=== PATIENT | female | born 1970 | race Caucasian/White ===

== ENCOUNTER → 2018-06-23 08:23 | Outpatient (CLI) | payer OTHER, SELFPAY ==
[2018-06-23 09:59] LABS: Absolute Neutrophil Count 4.9 X10^3/uL (2.0-7.7); Basophil# 0.04 X10^3/uL; Basophil% 0.6 % (0-1); Eosinophils% 2.8 % (0-5); Hemoglobin 11.6 g/dl (12.0-15.0); Lymphocyte % 20.9 % (19-41); Mean Corp Hgb Conc 31.4 g/gl (32-36); Mean Corpuscular Hgb 26.2 pg (27.0-32.0); Mean Corpuscular Volume 83.7 fL (81-99); Mean Platelet Vol. 10.7 fl (6.2-12.0); Monocyte# 0.51 X10^3/uL; Monocyte% 7.1 % (0-10); Neutrophil # 4.93 X10^3/uL (2.7-7.7); Neutrophil % 68.5 % (47-70); Platelet Count 331 K/mm3 (150-450); RBC Distribution Width CV 14.3 % (11.6-14.6); RBC Distribution Width SD 43.9 fl (35.1-43.9); Red Blood Count 4.42 M/mm3 (4.2-5.4); White Blood Count 7.2 K/mm3 (4.4-11.0)
[2018-06-23 10:00] LABS: POSITIVE COUNT NO; POSITIVE DIFFERENTIAL NO; POSITIVE MORPHOLOGY NO
[2018-06-23 10:21] LABS: Anion Gap 8 (5-15); BUN 16 mg/dL (7-18); BUN/Creat Ratio 17.6 RATIO (10-20); Calcium,Total 8.6 mg/dL (8.5-10.1); Chloride 106 mmol/L (98-107); Creatinine, Serum 0.91 mg/dL (0.55-1.02); EST Glomerular Filtration Rate 70 mL/min (>60); Est Glom Filt Rate - Afr Amer 85 mL/min (>60); Glucose 82 mg/dL (74-106); Sodium Level 141 mmol/L (136-145)
[2018-06-23 16:29] LABS: Xtra Tube EP Lab EXTRA TUBE
== END ==
PROVIDERS: Family Provider Family Medicine; PCP Family Medicine; Referring Provider Family Medicine; Visit Provider Family Medicine
DX: I10 Essential (primary) hypertension (principal); D64.9 Anemia, unspecified
CPT/HCPCS: 36415; 80048; 85025

== ENCOUNTER 2018-07-22 06:51 | Emergency (ER) | payer OTHER, SELFPAY ==
[2018-07-22 06:52] VITALS: BP 174/90; PULSE 71; RESP 18; TEMP 36.6; O2SAT 100; BMI 27.4
[2018-07-22 07:16] LABS: Bacteria 0 SEEN /hpf (None Seen); Mucous, Urine 0 SEEN /hpf (<or=2+); White Blood Cells 0 SEEN /hpf (0-5)
--- NOTE | 2018-07-22 07:18 | CT_ITS ---
STUDY: CT ABDOMEN AND PELVIS WITHOUT CONTRAST REASON FOR EXAM: Female, 47 years old. Left flank pain RADIATION DOSAGE (If Supplied By Facility): CTDIvol = ( 7.43 ) mGy, DLP = ( 367.77 ) mGycm TECHNIQUE: Transaxial images were obtained from the dome of the diaphragm to the symphysis pubis without oral contrast, and without intravenous contrast. Sagittal and coronal images were reconstructed. Individualized dose optimization techniques were used for this CT. COMPARISON: 05/05/2013 FINDINGS: Evaluation of the abdominal viscera is limited in the absence of intravenous contrast. The visualized lung bases are clear. The visualized portions of the heart and pericardium are within normal limits. There are no calcified gallstones present. The liver demonstrates an unremarkable unenhanced appearance. The spleen is normal in size. The pancreas demonstrates an unremarkable unenhanced appearance. The adrenal glands are within normal limits. There is a 6 mm stone in the left mid ureter with mild left hydroureteronephrosis. There are no additional urinary stones. There is no right hydronephrosis. Normal visualized stomach. There is no bowel obstruction or inflammation. The appendix is not visualized, but there are no findings to suggest acute appendicitis. The aorta is normal in caliber. There is no abdominal or pelvic free air, free fluid, fluid collection or lymphadenopathy. There are no destructive osseous lesions. There is bilateral spondylolysis at L5 with grade 2 anterolisthesis of L5 respect to S1. CT/Abdomen/Pelvis without Cont IMPRESSION: 6 mm stone in the left midureter with mild left hydroureteronephrosis. 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 Electronically Signed: Rubin Cisneros, at 8:06 EST Tel , Service support ,
[2018-07-22 07:22] LABS: Internal QC Validated? YES +Cl - CLEAR BKGD; Pregnancy, Urine Negative Negative
[2018-07-22] MEDS: 0.9% Normal Saline 1,000 ML 250 ML IV (07:27)
[2018-07-22] MEDS: Morphine 4 MG/ML Syringe IV (07:27)
[2018-07-22] MEDS: Ketorolac 30 MG/ML Syringe IV (07:27)
[2018-07-22] MEDS: Ondansetron 4 MG/2 ML Vial IV (07:27)
[2018-07-22 07:28] LABS: Color, Urine Yellow (Yellow); Glucose, Dipstick Normal (Normal); Ketone-Dipstick 5 mg/dl (Negative); Leukocyte Esterase-Dipstick 25 /ul (Negative); Nitrite-Dipstick Negative (Negative); Occult Blood-Urine 250 /ul (Negative); Protein-Dipstick 100 mg/dl (Negative); Specific Gravity, Urine 1.025 (1.002-1.030); Urine Bilirubin Dipstick Negative (Negative); Urine Clarity Cloudy (Clear); Urine Urobilinogen 1 mg/dl (Normal)
[2018-07-22 07:29] LABS: Red Blood Cells-Urine > 100 SEEN /hpf (0-5); Squamous Epithelial Cells - UA 5-10 SEEN /hpf (5-10)
--- NOTE | 2018-07-22 07:38 | ED.DCSUM_ITS ---
- ER Visit Summary Date of Service: 07/22/18 Chief Complaint: Left flank pain History of Present Illness: The patient is a 47 F who states that at 040 0 hours she was awoken from her sleep with a severe sharp stabbing left flank pain. She notes some mild discomfort in the left lower quadrant. She has a history of kidney stones and states that this feels very similar. She had no symptoms yesterday. She denies any dysuria frequency or hematuria. Patient has seen Dr. Miranda in the past for urology. She has never needed urologic surgery. She states that this episode of pain has resulted in nausea vomiting which has not been a problem in the past. Physical Examination: Afebrile vital signs are stable Gen: Well-nourished well-developed and appears in pain Head: Normocephalic atraumatic Eyes: Perrl EOMI ENT: TMs clear no rhinorrhea moist mucous membranes Neck: Supple no lymphadenopathy no JVD nontender CVS: Regular rate rhythm no murmurs normal S1-S2 Respiratory: No distress clear to auscultation bilaterally chest nontender Abdomen: Soft nontender nondistended normal bowel sounds no masses Back: Nontender Extremity: Nontender no edema Skin: Normal color no rash Neuro: alert orientated ?3 CN II-XII intact normal strength sensation reflexes gait cerebellar Psych: Normal affect normal mood Test Results: Urinalysis shows hematuria. Creatinine 1.04. Slight elevation in white blood cell count. CT of the abdomen pelvis demonstrates a 6 mm mid ureteral stone on the left with mild hydronephroureter. Emergency Department Course and Treatment: Patient received Toradol, morphine, and Zofran. She also received IV fluids. Repeat examination shows her pain to be improved. He continues to have nausea. Dose of Phenergan was given. Patient will be discharged home with prescriptions for Phenergan Toradol and oxycodone. I will refer her to urology. Patient to return if worsening or concerns. She notes understanding. Impression: 1. Left ureterolithiasis This note was generated with [employer] dictation software. It may contain incorrect words, spelling, and punctuation that were not noted in review of the chart prior to signing ED Disposition - Plan for ED Patient: Disposition: Home or Assisted Living Chief Complaint: Flank Pain Instructions: ED Stone Renal W Colic Prescriptions: Oxycodone [Oxyir] 5 mg PO Q4H PRN PRN 3 Days #20 tablet PRN Reason: Pain proMETHazine tablet [Phenergan] 25 mg PO Q6H PRN PRN #10 tablet PRN Reason: Nausea Ketorolac [Toradol] 10 mg PO Q6H PRN #15 tablet PRN Reason: Pain Referrals: Prateek Llanes MD [STAFF PHYSICIAN] - (call to arrange follow up)
[2018-07-22 07:50] LABS: Absolute Lymphocyte Count 0.78 X10^3/ul (0.83-4.51); Absolute Neutrophil Count 10.6 X10^3/uL (2.0-7.7); Basophil# 0.04 X10^3/uL; Basophil% 0.3 % (0-1); Eosinophil# 0.05 X10^3/uL; Eosinophils% 0.4 % (0-5); Hematocrit 33.1 % (37-47); Hemoglobin 10.6 g/dl (12.0-15.0); Lymphocyte # 0.78 X10^3/ul (4.0); Lymphocyte % 6.5 % (19-41); Mean Corpuscular Volume 81.1 fL (81-99); Monocyte# 0.46 X10^3/uL; Monocyte% 3.8 % (0-10); Neutrophil % 88.8 % (47-70); Platelet Count 298 K/mm3 (150-450); RBC Distribution Width CV 14.7 % (11.6-14.6); RBC Distribution Width SD 42.8 fl (35.1-43.9); Red Blood Count 4.08 M/mm3 (4.2-5.4)
[2018-07-22 07:51] LABS: POSITIVE COUNT NO; POSITIVE DIFFERENTIAL NO; POSITIVE MORPHOLOGY NO
[2018-07-22 08:09] LABS: Anion Gap 9 (5-15); BUN 22 mg/dL (7-18); BUN/Creat Ratio 21.2 RATIO (10-20); Calcium,Total 8.6 mg/dL (8.5-10.1); Chloride 108 mmol/L (98-107); Creatinine, Serum 1.04 mg/dL (0.55-1.02); EST Glomerular Filtration Rate 60 mL/min (>60); Est Glom Filt Rate - Afr Amer 73 mL/min (>60); Estimated Creatinine Clearance 63.28 ml/min; Glucose 127 mg/dL (74-106); Potassium 3.6 mmol/L (3.5-5.1); Sodium Level 143 mmol/L (136-145)
[2018-07-22] MEDS: proMETHazine 25 MG/ML Syringe 12.5 MG IV (08:26)
[2018-07-22 08:38] VITALS: BP 123/72; PULSE 67; RESP 12; O2SAT 98
== END 2018-07-22 08:40 | disposition home or self-care (01) ==
PROVIDERS: Emergency Provider Emergency Medicine; Family Provider Family Medicine; PCP Family Medicine
DX: N20.1 Calculus of ureter (principal); R31.9 Hematuria, unspecified; I10 Essential (primary) hypertension; Z79.899 Other long term (current) drug therapy; Z87.442 Personal history of urinary calculi
CPT/HCPCS: 36415; 74176; 80048; 81001; 81025; 85025; 96361; 96374; 96375; 99283; J2405

== ENCOUNTER 2018-08-09 09:25 | Day surgery (SDC) | payer OTHER, SELFPAY ==
[2018-08-09] VITALS (7 sets, daily range): BP systolic 109–146; BP diastolic 74–95; PULSE 52–68; RESP 16–18; TEMP 36.6–37.2; O2SAT 98–100; BMI 26.6
[2018-08-09 10:01] LABS: Absolute Lymphocyte Count 1.39 X10^3/ul (0.83-4.51); Basophil# 0.04 X10^3/uL; Basophil% 0.4 % (0-1); Eosinophil# 0.07 X10^3/uL; Eosinophils% 0.8 % (0-5); Hematocrit 34.6 % (37-47); Hemoglobin 10.8 g/dl (12.0-15.0); Lymphocyte # 1.39 X10^3/ul (4.0); Lymphocyte % 15.3 % (19-41); Mean Corp Hgb Conc 31.2 g/gl (32-36); Mean Corpuscular Hgb 24.9 pg (27.0-32.0); Mean Corpuscular Volume 79.9 fL (81-99); Mean Platelet Vol. 9.7 fl (6.2-12.0); Monocyte% 6.6 % (0-10); Neutrophil # 6.97 X10^3/uL (2.7-7.7); Neutrophil % 76.7 % (47-70); Platelet Count 322 K/mm3 (150-450); RBC Distribution Width CV 14.9 % (11.6-14.6); RBC Distribution Width SD 43.5 fl (35.1-43.9); Red Blood Count 4.33 M/mm3 (4.2-5.4); White Blood Count 9.1 K/mm3 (4.4-11.0)
[2018-08-09 10:04] LABS: POSITIVE COUNT NO; POSITIVE DIFFERENTIAL NO; POSITIVE MORPHOLOGY NO
[2018-08-09] MEDS: Ketorolac 30 MG/ML Syringe 15 MG IV (10:04)
[2018-08-09] MEDS: Ondansetron 4 MG/2 ML Vial IV (10:04)
[2018-08-09 10:05] LABS: Anion Gap 8 (5-15); BUN 21 mg/dL (7-18); BUN/Creat Ratio 12.1 RATIO (10-20); Calcium,Total 8.6 mg/dL (8.5-10.1); Chloride 103 mmol/L (98-107); Creatinine, Serum 1.73 mg/dL (0.55-1.02); EST Glomerular Filtration Rate 34 mL/min (>60); Est Glom Filt Rate - Afr Amer 41 mL/min (>60); Estimated Creatinine Clearance 38.04 ml/min; Glucose 87 mg/dL (74-106); Potassium 3.7 mmol/L (3.5-5.1); Sodium Level 134 mmol/L (136-145)
--- NOTE | 2018-08-09 10:10 | RAD_ITS ---
STUDY: X-RAY - ABDOMEN/PELVIS REASON FOR EXAM: Female, 47 years old. Left-sided abdominal pain. History of renal calculi. TECHNIQUE: Single AP view of the abdomen / pelvis. COMPARISON: None. FINDINGS: There is a moderate amount of colonic fecal material. The visualized liver, spleen and kidneys are grossly normal in size and morphology. Questionable 4.4 mm calculus in the left ureterovesical junction. There are calcified phleboliths in the pelvis. Normal visualized osseous structures. RAD/Abdomen Single View IMPRESSION: Questionable 4.4 mm calculus at the left ureterovesical junction. Electronically Signed: Lauri Savage MD at 10:37 EST Tel [phone], Service support ,
[2018-08-09 10:12] LABS: Bacteria 0 SEEN /hpf (None Seen); Mucous, Urine 0 SEEN /hpf (<or=2+); White Blood Cells 0 SEEN /hpf (0-5)
[2018-08-09 10:14] LABS: Glucose, Dipstick Normal (Normal); Ketone-Dipstick Negative (Negative); Leukocyte Esterase-Dipstick Negative /ul (Negative); Nitrite-Dipstick Positive (Negative); Occult Blood-Urine 250 /ul (Negative); Protein-Dipstick 30 mg/dl (Negative); Urine Clarity Sl. Cloudy (Clear); Urine Urobilinogen 8 mg/dl (Normal)
[2018-08-09 10:17] LABS: Color, Urine SEE COMMENT BELOW (Yellow); Urine Bilirubin Dipstick 6 mg/dL (Negative)
[2018-08-09 10:21] LABS: Red Blood Cells-Urine > 100 SEEN /hpf (0-5); Squamous Epithelial Cells - UA 0-5 SEEN /hpf (5-10)
--- NOTE | 2018-08-09 11:09 | NURSING ---
GOING TO SURGERY PROANAO LT CYSTOSCOPY, LT STENT
--- NOTE | 2018-08-09 11:21 | ED.VISSUMM ---
- ER Visit Summary Date of Service: 08/09/18 Chief Complaint: Left flank pain History of Present Illness: The patient is a 47 F presenting for evaluation secondary to left flank pain. Patient reports that she was seen in the emergency department for left flank pain on 22 July. She was diagnosed as having a 6 mm mid ureteral kidney stone. She was sent home with outpatient treatment and follow-up with urology. Patient states that she did have some improvement, that lasted for 4 days, but again got worse. Patient states that she never felt like she actually passed the stone. It has been associated with some nausea and vomiting. Patient denies that she has any hematuria although this is difficult to tell as she is currently on Pyridium. Patient's primary care physician who placed her on a course of antibiotics empirically. Patient reports that she called the urology office, and they recommended that she come into the emergency department. Physical Examination: Vital signs are within normal limits, patient is afebrile. General: Patient is well-nourished well-developed and in no acute distress. Head: Normocephalic, atraumatic Eyes: Pupils equal round and reactive bilaterally, extra occular motion intact bialterally ENT: Moist mucous membranes Neck: Supple, no lymphadenopathy, no JVD, no meningismus CVS: Heart regular rate and rhythm, no murmurs, rubs or gallops, radial pulses 2+ bilaterally Resp: Respirations nondistressed, lung sounds clear bilaterally Abdomen: Soft, left lower quadrant tenderness no guarding or rebound, nondistended, no palpable masses, normal bowel sounds Back: Nontender Extremities: Nontender, atraumatic, active full range of motion, no peripheral edema Skin: warm, no rashes, no petechia Neuro: Alert and oriented x 4, CN 2-12 intact, no lateralizing neurological defecits Psyc: Normal affect Test Results: CBC shows chronic anemia 10, chemistry demonstrates acute kidney injury with creatinine 1.7. Bedside ultrasound shows mild to moderate left-sided hydronephrosis. Abdominal x-ray shows a 4-5 mm stone at the left UVJ Emergency Department Course and Treatment: Patient presented secondary to persistent flank pain. Patient was not re-imaged with CT scan as she is only in her 40s, and she just had CT performed last month. Bedside ultrasound and abdominal x-ray are both suggestive of a retained stone, and the patient has evidence of acute kidney injury. I discussed this with urology Dr. Llanes who will take the patient to the operating room. Patient's discomfort was treated with Toradol and she had improvement Disposition: Operating room Impression: 1. Retained left-sided kidney stone 2. Acute kidney injury This note was generated with [employer] dictation software. It may contain incorrect words, spelling, and punctuation that were not noted in review of the chart prior to signing ED Disposition - Plan for ED Patient: Disposition: Acute Care Hospital [facility] Chief Complaint: Flank Pain
--- NOTE | 2018-08-09 11:24 | ED.DCSUM_ITS ---
- ER Visit Summary Date of Service: 08/09/18 Chief Complaint: Left flank pain History of Present Illness: The patient is a 47 F presenting for evaluation secondary to left flank pain. Patient reports that she was seen in the emergency department for left flank pain on 22 July. She was diagnosed as having a 6 mm mid ureteral kidney stone. She was sent home with outpatient treatment and follow-up with urology. Patient states that she did have some improvement, that lasted for 4 days, but again got worse. Patient states that she never felt like she actually passed the stone. It has been associated with some nausea and vomiting. Patient denies that she has any hematuria although this is difficult to tell as she is currently on Pyridium. Patient's primary care physician who placed her on a course of antibiotics empirically. Patient reports that she called the urology office, and they recommended that she come into the emergency department. Physical Examination: Vital signs are within normal limits, patient is afebrile. General: Patient is well-nourished well-developed and in no acute distress. Head: Normocephalic, atraumatic Eyes: Pupils equal round and reactive bilaterally, extra occular motion intact bialterally ENT: Moist mucous membranes Neck: Supple, no lymphadenopathy, no JVD, no meningismus CVS: Heart regular rate and rhythm, no murmurs, rubs or gallops, radial pulses 2+ bilaterally Resp: Respirations nondistressed, lung sounds clear bilaterally Abdomen: Soft, left lower quadrant tenderness no guarding or rebound, nondistended, no palpable masses, normal bowel sounds Back: Nontender Extremities: Nontender, atraumatic, active full range of motion, no peripheral edema Skin: warm, no rashes, no petechia Neuro: Alert and oriented x 4, CN 2-12 intact, no lateralizing neurological defecits Psyc: Normal affect Test Results: CBC shows chronic anemia 10, chemistry demonstrates acute kidney injury with creatinine 1.7. Bedside ultrasound shows mild to moderate left- sided hydronephrosis. Abdominal x-ray shows a 4-5 mm stone at the left UVJ Emergency Department Course and Treatment: Patient presented secondary to persistent flank pain. Patient was not re-imaged with CT scan as she is only in her 40s, and she just had CT performed last month. Bedside ultrasound and abdominal x-ray are both suggestive of a retained stone, and the patient has evidence of acute kidney injury. I discussed this with urology Dr. Llanes who will take the patient to the operating room. Patient's discomfort was treated with Toradol and she had improvement Disposition: Operating room Impression: 1. Retained left-sided kidney stone 2. Acute kidney injury This note was generated with [employer] dictation software. It may contain incorrect words, spelling, and punctuation that were not noted in review of the chart prior to signing ED Disposition - Plan for ED Patient: Disposition: Acute Care [facility] Chief Complaint: Flank Pain
--- NOTE | 2018-08-09 13:03 | CT_ITS ---
STUDY: CT ABDOMEN AND PELVIS WITHOUT CONTRAST REASON FOR EXAM: Female, 47 years old. Left-sided abdominal pain. History of kidney stones. RADIATION DOSAGE (If Supplied By Facility): CTDIvol = ( 9.12 ) mGy, DLP = ( 428.29 ) mGycm TECHNIQUE: Transaxial images were obtained from the dome of the diaphragm to the symphysis pubis without oral contrast, and without intravenous contrast. Sagittal and coronal images were reconstructed. Individualized dose optimization techniques were used for this CT. COMPARISON: Comparison is made with prior study dated July 22, 2018. FINDINGS: Minimal degree of dependent bibasilar atelectasis. The visualized portions of the heart are within normal limits. Normal liver. Normal gallbladder and extrahepatic biliary system. Normal spleen. Normal pancreas. Normal bilateral adrenal glands. Normal right kidney. Mild left hydronephrosis and hydroureter due to a 4 mm calculus at the left ureterovesical junction. This calculus was previously seen in the midportion of the left ureter. Mild degree of left perinephric stranding. There is a small hiatal hernia. Normal small intestine. There are multiple colonic diverticula consistent with diverticulosis. The appendix is visualized and appears normal. Normal abdominal aorta. Normal inferior vena cava. Normal retroperitoneum. Normal urinary bladder. Enlarged uterus. There is a small umbilical hernia containing fat. Grade 2 anterolisthesis of L5 on S1 spondylolysis of the pars interarticularis of the L5 vertebrae. Disc space narrowing at the L5-S1 level. CT/Abdomen/Pelvis without Cont IMPRESSION: 4 mm calculus at the left ureterovesical junction with mild left hydronephrosis and left perinephric stranding. Electronically Signed: Lauri Savage MD at 13:44 EST Tel [phone], Service support ,
--- NOTE | 2018-08-09 13:30 | CALC_PTH ---
PATIENT: PB URIOSTEGUI [place] [facility] [id number] AGE/SX: 47/F ROOM: RE08/09/[address]: Dr. Prateek Llanes MD : 1970 BED: DIS: 08/09/2018 SPEC #: [id number] RECD: 08/10/18 07:18 STATUS: SAMIR GREER #: [id number] LYLA: 08/09/18 13:[address]: Prateek Llanes DEPT: SURGICAL PATHOLOGY RECD BY: Keith Tirado ENTERED: 08/10/18 11:07 SP TYPE: Calculi OTHR DR: Dr. Abrahan Mcpherson MD Tissues: CALCULI Procedures: Surgery Specimen Level I HEADER OPERATION: Cystoscopy, ureteroscopy, balloon dilatation, laser, basket extraction PRE-OP DIAGNOSIS: Left distal ureter calculi TISSUE SUBMITTED: Left calculi for analysis GROSS DIAGNOSIS A fragment of stone, clinically left distal ureter calculus for analysis. SJ:yann 08/10/18 COMMENT The calculus is submitted in its entirety for chemical stone analysis. The results from this study will be reported separately. GROSS DESCRIPTION Received in fixative is one container labeled with the patient's name and designated left calculi for analysis. The specimen consists of a fragment of brownish-black stone measuring 0.4 x 0.3 x 0.3 cm. The entire specimen is submitted for stone analysis. / ROZ:yann 08/10/18 CPT: 84956
[2018-08-09] MEDS: Cefazolin 2 GM in 0.9% Normal Saline 100 ML IV (14:33)
--- NOTE | 2018-08-09 14:34 | CON.PCM_ITS ---
Problem List (1) Ureteral calculus, left Status: Acute Reason for Consult Date of Consultation: 08/09/18 Reason for Consultation: Left ureteral calculi History of Present Illness: The patient is a 47 year old female who presented to the emergency room with a distal left ureteral calculi CAT scan was done to measure the stone a stone in the past in the distal left ureter patient was admitted for pain control Past Medical History Medical History: Medical History (Last Updated 07/27/17 @ 16:20 by Harika Sears) History of high blood pressure Z86.79 Allergies No Known Allergies Allergy (Verified 08/09/18 09:27) Home Medications: Ambulatory Orders Medication Instructions Recorded Bisoprol/Hydrochlorothiazide [Ziac 1 tab PO DAILY 06/30/17 5/6.25 MG Tablet] Surgical History: Surgical History (Last Updated 07/27/17 @ 16:31 by Sammi Abebe MD) History of Z98.891 laparoscopic bilateral salpingectomy Surgical History: no surgical history Psychiatric History: No pertinent psych hx [employer] History: No pertinent [employer] history Lives: With Family Smoking Status: Never smoker Tobacco Use: Non-smoker Alcohol: None Drugs: None - *Family History Maternal Family History: Family History (Last Updated 07/27/17 @ 16:13 by Harika Sears) Mother Hypertension Father Sudden cardiac Brother Sudden cardiac History Items: No pertinent history Review of Systems Constitutional: Denies: Chills, Fever, Weight Change HEENT: Denies: Head Aches, Sinus Congestion, Sinus Drainage Cardiovascular: Denies: Chest Pain, Palpitations Respiratory: Denies: Cough, Shortness of breath at rest, Sputum production Gastrointestinal: Denies: Abdominal Pain, Nausea, Vomiting Genitourinary: Denies: Dysuria Musculoskeletal: Denies: Joint Pain, Joint Tenderness Skin: Denies: Rash, Wounds Neurological: Denies: Numbness, Tingling, Focal weakness Psychiatric: Denies: Anxiety, Depression, Homicidal Ideations, Suicidal Ideations Hematologic/ Lymphatic: Denies: Easy Bruising, Easy Bleeding Physical Exam - Physical Exam Vital Signs Temp 98.7 F 08/09/18 09:26 Pulse 58 L 08/09/18 11:18 Resp 17 08/09/18 11:18 BP 146/89 H 08/09/18 11:18 Pulse Ox 99 08/09/18 11:18 Intake & Output 08/07/18 08/08/18 08/09/18 23:59 23:59 23:59 Weight: 74.843 kg General: Alert, Oriented x3 HEENT: Atraumatic Oral: Moist Mucosa Neck: Supple Lungs: Normal air movement Cardiovascular: Regular Rhythm Abdomen: Soft, Obese Laboratory Tests Past 24 Hrs 08/09/18 08/09/18 08/09/18 09:35 09:35 10:05 WBC 9.1 RBC 4.33 Hgb 10.8 L Hct 34.6 L MCV 79.9 L MCH 24.9 L MCHC 31.2 L RDW 14.9 H RDW Differential 43.5 Plt Count 322 MPV 9.7 Immature Gran % (Auto) 0.200 Neut % (Auto) 76.7 H Lymph % (Auto) 15.3 L [place] % (Auto) 6.6 Eos % (Auto) 0.8 Baso % (Auto) 0.4 Absolute Neuts (auto) 7.0 Absolute Lymphs (auto) 1.39 Total Counted Not Reportable Sodium 134 L Potassium 3.7 Chloride 103 Carbon Dioxide 23.0 Anion Gap 8 BUN 21 H Creatinine 1.73 H Estim Creat Clear Calc 38.04 Est GFR (MDRD) Af Amer 41 L Est GFR (MDRD) Non-Af 34 L BUN/Creatinine Ratio 12.1 Glucose 87 Calcium 8.6 Urine Color SEE COMMENT BELOW Urine Clarity Sl. Cloudy Urine pH 5.0 Ur Specific [place] 1.020 Urine Protein 30 H Urine Glucose (UA) Normal Urine Ketones Negative Urine Occult Blood 250 H Urine Nitrite Positive H Urine Bilirubin 6 H Urine Urobilinogen 8 H Ur Leukocyte Esterase Negative Urine RBC > 100 SEEN Urine WBC 0 SEEN Ur Squamous Epith Cells 0-5 SEEN Urine Bacteria 0 SEEN Urine Mucus 0 SEEN Assessment/Plan All Active Problems (Last Updated 07/27/17 @ 16:20 by Harika Sears) Ureteral calculus, left (Acute) Encounter for sterilization (Acute) Plan to proceed with left ureteroscopy basket extraction of stone possible stent.
--- NOTE | 2018-08-09 14:37 | DCINST_ITS ---
Discharge Diet: Light diet - advance as tolerated Discharge Activity: Return to Normal Activity, May not drive while taking narcotic pain medications., May Shower Call your doctor if your incision/area has: Continuous Slow Oozing, Sudden Increased Bleeding, Increased Pain/ Swelling, Increased Redness, Foul Smelling Discharge Call your doctor if you observe: Fever of 101 or Higher Suture Line Care: Avoid Pulling/Pushing, Avoid Pinching/Bending Allergies/Adverse Reactions: Allergies No Known Allergies Allergy (Verified 08/09/18 09:27) Medications to take at Discharge Bisoprol/Hydrochlorothiazide [Ziac 5/6.25 MG Tablet] 1 tab PO DAILY 06/30/17 Acetaminophen [Tylenol Extra Strength] 500 mg PO Q4H PRN PRN #20 tablet 08/09/18 Ibuprofen 600 mg PO Q4H PRN PRN #20 tablet 08/09/18 The following prescriptions were given: Acetaminophen [Tylenol Extra Strength] 500 mg PO Q4H PRN PRN #20 tablet PRN Reason: Pain Ibuprofen 600 mg PO Q4H PRN PRN #20 tablet PRN Reason: Pain Primary Care Physician: Abrahan Mcpherson MD [Primary Care Provider] - Test Results: Test results from this visit will be discussed in further detail at your follow- up appointment, if applicable. Please Follow Up With: Prateek Llanes MD When: in 2 weeks, please call to make an appointment.
--- NOTE | 2018-08-09 15:11 | OP.PCM_ITS ---
Problem List (1) Ureteral calculus, left Status: Acute Report of Operation Date of Procedure: 08/09/18 Pre-Operative Diagnosis: Impacted left ureteral calculi Post-Operative Diagnosis: The same Surgery/Procedure Performed:: Cystoscopy, balloon dilation of the left ureter, left ureteroscopy, laser lithotripsy of stone, basket of fragments, and placement of a left stent Description of Surgical Findings:: 47-year-old female is been try to pass a stone now for several weeks she presented to the emergency room with severe pain CAT scan was done again confirms a stone in the distal left ureter. Today we plan to take her back to surgery for ureteroscopy laser lithotripsy of the stone extraction of stone fragments. 47-year-old female taken back to the operating room after smooth induction of general anesthesia she was placed supine on the table then in dorsal lithotomy position the urethra vaginal area prepped and draped in usual sterile fashion went into the bladder with a 21 [place] rigid cystourethroscope the entire length the urethra is normal the bladder was normal identified the left ureteral orifice. Cannulated the left ureteral orifice and immediately could feel the wi re hit the stone I had the use a balloon dilator sheath to help guide the wire was able to get the wire past the stone up into the kidney and then I then balloon dilated but I did not balloon dilate past the stone then I balloon dilated the distal ureter up to the stone was able to to then leave the wire in place next the wire went in with the ureteroscope the stone was really tight very stenotic opening to the stone was able to get the laser right of the stone break up a little pieces and breaking up the stone pieces there was a small mucosal injury to the ureter posteriorly because of this I decided she need a stent to let this heal I then continued to laser the stone find the stone broke free and then was in the open dilated ureter and then laser the stone some more and then used the basket and basket extracted the stone without any difficulty and then over the wire I then placed a stent 6 Bur[place] by 26 cm stent left the string of the stent for easy extraction drain the bladder stone was handed off as a specimen will be sent off for analysis. I will see her back in 1 week to get stent out. Type of Anesthesia:: General Drains: stent - Admit VTE Documentation VTE Present on Admission: No VTE Mechan Device Prophylaxis: SCD's
[2018-08-09] MEDS: Ketorolac 15 MG/ML Vial IV (16:10)
[2018-08-16 16:11] LABS: Ca Oxalate, Monohydrate 92 % (.); Size 5x4x2 mm (.)
[2018-08-17 09:47] LABS: Comment Note: (.)
== END 2018-08-09 16:12 | disposition home or self-care (01) ==
LOC: ED 11:09 → SDC 11:16 → AC 11:17
PROVIDERS: Emergency Provider Emergency Medicine; Family Provider Family Medicine; PCP Family Medicine; Visit Provider Urology
PROC: (CPT 52356; principal; 2018-08-09 13:20)
DX: N20.2 Calculus of kidney with calculus of ureter (principal); N17.9 Acute kidney failure, unspecified; I10 Essential (primary) hypertension; Z79.899 Other long term (current) drug therapy
CPT/HCPCS: 00918; 52356; 74018; 74176; 80048; 81001; 82360; 85025; 88300; 99284; J7120; A4216; C1769; C2617; J2405

== ENCOUNTER → 2019-06-26 07:01 | Outpatient (CLI) | payer OTHER, SELFPAY ==
[2018-08-09 09:26] VITALS: BMI 26.6
[2019-06-26 10:17] LABS: Absolute Lymphocyte Count 1.36 X10^3/uL (0.83-4.51); Absolute Neutrophil Count 4.6 X10^3/uL (2.0-7.7); Basophil# 0.06 X10^3/uL; Basophil% 0.9 % (0-1); Eosinophil# 0.17 X10^3/uL; Eosinophils% 2.5 % (0-5); Hematocrit 31.2 % (37-47); Hemoglobin 9.2 g/dL (12.0-15.0); Lymphocyte # 1.36 X10^3/ul (4.0); Lymphocyte % 20.3 % (19-41); Mean Corp Hgb Conc 29.5 g/dL (32-36); Mean Corpuscular Hgb 22.1 pg (27.0-32.0); Mean Corpuscular Volume 74.8 fL (81-99); Monocyte# 0.47 X10^3/uL; NRBC Flagged by Analyzer 0 % (0-5); Neutrophil # 4.61 X10^3/uL (2.7-7.7); Platelet Count 374 K/mm3 (150-450); RBC Distribution Width CV 16.7 % (11.6-14.6); Red Blood Count 4.17 M/mm3 (4.2-5.4); White Blood Count 6.7 K/mm3 (4.4-11.0)
[2019-06-26 10:53] LABS: Anion Gap 6 (5-15); BUN 15 mg/dL (7-18); BUN/Creat Ratio 17.3 RATIO (10-20); Calcium,Total 8.8 mg/dL (8.5-10.1); Chloride 106 mmol/L (98-107); Cholesterol 180 mg/dL (200); Creatinine, Serum 0.87 mg/dL (0.55-1.02); EST Glomerular Filtration Rate 74 mL/min (>60); Est Glom Filt Rate - Afr Amer 90 mL/min (>60); Glucose 76 mg/dL (74-106); High Density Lipoprotein 57 mg/dL; Potassium 3.9 mmol/L (3.5-5.1); Sodium Level 139 mmol/L (136-145); Triglycerides 85 mg/dL; Very Low Density Lipoprotein 17 mg/dL (5-40)
== END ==
PROVIDERS: Family Provider Family Medicine; PCP Family Medicine; Referring Provider Family Medicine; Visit Provider Family Medicine
DX: I10 Essential (primary) hypertension (principal); D64.9 Anemia, unspecified
CPT/HCPCS: 36415; 80048; 80061; 85025

== ENCOUNTER → 2019-07-05 08:16 | Outpatient (CLI) | payer OTHER, SELFPAY ==
[2018-08-09 09:26] VITALS: BMI 26.6
[2019-07-05 10:26] LABS: Platelet Count 405 K/mm3 (150-450); RET-HE 23.1 pg (30-35); Reticulocyte Count 1.18 % (0.5-1.5)
[2019-07-05 10:58] LABS: Ferritin 3 ng/mL (8-252); Iron Binding Capacity,Total 409 ug/dL (250-450)
== END ==
PROVIDERS: Family Provider Family Medicine; PCP Family Medicine; Referring Provider Family Medicine; Visit Provider Family Medicine
DX: D64.9 Anemia, unspecified (principal)
CPT/HCPCS: 36415; 82728; 83550; 85045

== ENCOUNTER → 2020-01-09 07:42 | Outpatient (CLI) | payer BC, SELFPAY ==
[2018-08-09 09:26] VITALS: BMI 26.6
[2020-01-09 10:26] LABS: Absolute Lymphocyte Count 1.25 X10^3/uL (0.83-4.51); Absolute Neutrophil Count 5.1 X10^3/uL (2.0-7.7); Basophil# 0.06 X10^3/uL; Basophil% 0.8 % (0-1); Eosinophil# 0.27 X10^3/uL; Eosinophils% 3.7 % (0-5); Hematocrit 36.7 % (37-47); Hemoglobin 11.3 g/dL (12.0-15.0); Lymphocyte # 1.25 X10^3/ul (4.0); Lymphocyte % 17.3 % (19-41); Mean Corp Hgb Conc 30.8 g/dL (32-36); Mean Corpuscular Hgb 25.7 pg (27.0-32.0); Mean Corpuscular Volume 83.6 fL (81-99); Mean Platelet Vol. 11.1 fl (6.2-12.0); Monocyte# 0.52 X10^3/uL; Monocyte% 7.2 % (0-10); NRBC Flagged by Analyzer 0 % (0-5); Neutrophil # 5.09 X10^3/uL (2.7-7.7); Neutrophil % 70.4 % (47-70); Platelet Count 342 K/mm3 (150-450); RBC Distribution Width CV 16.5 % (11.6-14.6); RBC Distribution Width SD 50.1 fl (35.1-43.9); Red Blood Count 4.39 M/mm3 (4.2-5.4); White Blood Count 7.2 K/mm3 (4.4-11.0)
[2020-01-09 10:38] LABS: Anion Gap 6 (5-15); BUN 13 mg/dL (7-18); BUN/Creat Ratio 14.7 RATIO (10-20); Calcium,Total 8.6 mg/dL (8.5-10.1); Chloride 103 mmol/L (98-107); Creatinine, Serum 0.88 mg/dL (0.55-1.02); EST Glomerular Filtration Rate 72 mL/min (>60); Est Glom Filt Rate - Afr Amer 88 mL/min (>60); Ferritin 12 ng/mL (8-252); Glucose 78 mg/dL (74-106); Sodium Level 138 mmol/L (136-145)
== END ==
PROVIDERS: PCP Family Medicine; Referring Provider Family Medicine; Visit Provider Family Medicine
DX: I10 Essential (primary) hypertension (principal); D64.9 Anemia, unspecified
CPT/HCPCS: 36415; 80048; 82728; 85025

== ENCOUNTER 2021-09-23 10:57 | Outpatient (CLI) | payer OTHER, SELFPAY ==
--- NOTE | 2021-09-23 11:03 | RAD_ITS ---
STUDY: X-RAY - LUMBAR SPINE REASON FOR EXAM: Female, 51 years old. BACK PAIN TECHNIQUE: 5 view(s) of the lumbar spine were obtained. COMPARISON: 08/09/2018 FINDINGS: Normal lumbar lordosis. There is no substantial scoliosis. Grade 2 L5-S1 anterolisthesis. Normal vertebral bodies and endplates. Normal disc space heights. There is no demonstrated acute fracture. L5 pars defects. The soft tissue structures are unremarkable. RAD/L/S Spine Min 4 Views IMPRESSION: Bilateral L5 pars defects with increased L5-S1 anterolisthesis compared to 08/09/2018. Electronically Signed: Jarod Maurer MD at 5:38 EST ,
[2021-09-23 13:00] LABS: Anion Gap 5 (5-15); BUN 15 mg/dL (7-18); BUN/Creat Ratio 17.4 RATIO (10-20); Calcium,Total 9.2 mg/dL (8.5-10.1); Chloride 101 mmol/L (98-107); Cholesterol 185 mg/dL (200); Creatinine, Serum 0.86 mg/dL (0.55-1.02); EST Glomerular Filtration Rate 74 mL/min (>60); Est Glom Filt Rate - Afr Amer 89 mL/min (>60); Glucose 86 mg/dL (74-106); High Density Lipoprotein 59 mg/dL; Potassium 3.5 mmol/L (3.5-5.1); Sodium Level 135 mmol/L (136-145); Thyroid Stim Hormone (TSH) 1.64 uIU/mL (0.358-3.74); Triglycerides 125 mg/dL; Very Low Density Lipoprotein 25 mg/dL (5-40)
== END 2021-09-23 23:59 | disposition home or self-care (01) ==
LOC: MTLAB 11:01
PROVIDERS: PCP Family Medicine; Referring Provider Family Medicine; Visit Provider Family Medicine
DX: M54.9 Dorsalgia, unspecified (principal); I10 Essential (primary) hypertension; R63.5 Abnormal weight gain
CPT/HCPCS: 36415; 72110; 80048; 80061; 84443

== ENCOUNTER 2021-11-11 16:30 | Outpatient (RCR) | payer OTHER, SELFPAY ==
--- NOTE | 2021-10-14 17:38 | HP.PTEVAL_ITS ---
Patient's Visit Information PB URIOSTEGUI is a 51 year old F referred to Physical Therapy by Dr. Jarod Wilson MD with a diagnosis of BACK PAIN. Date of Evaluation: 10/14/21 Physical Therapist: Mitul Cole, PT, Cert MDT, OCS - Visit Plan Frequency: 2x /Week Duration: 6 Weeks Plan: PT INTERVETIONS DLS ABD/BACK ,ACTIVITY MODIFICATION ,POSTURAL EX'S AND LE FLEXABLITY AND MODALTIES - Subjective This 51 y/o female presents tp physical therapy with back pain. Patient has back pain since 2019 . But the past 8 months symptoms have worsen. Seen DR x-rays showed grade 2 anteriorlotheises ,L5 pars defect.MD prescribed meloxicam. Mavis hua MD wanted to do MRI but need PT. Aggravating supine ,twisting and turning in bed, lifting ,extended walking ,elevation from soft surface . Alleviating sitting and rest. Coughing/sneezing + . Bowel/.bladder -. Denies paresthesia/tingling. Patient symptoms affects sleeping. Pain has affected ability to work out. Patient pain affects housework tasks ,ADL'S and job demands. Symptoms affects QOL and function. SOCAIL: . VOCATION: [place] - Pain Bilateral Back Pain Intensity (Out of 10): 6 Pain Intensity Range: 10 Comment: worse 10/10 - Objective POSTURE: mild forward posture in sagittal plane. GAIT: reciprocal pattern mild forward position. SYMMTRICAL: align. NEURO: denies paresthesia/tingling ,reflexes L3-4,L4-5,L5-S1 2/3. LUMBAR ROM: flexion mod loss ,extension min loss ,side glides min loss pain right side during glides to -R. MMT: 4/5 quads/ hams/hip/ankle 4/5. 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 Goal Time Frame: 4-6 Weeks Goal 3:: Patient to improve lumbar ROM for function of recovery to perform housework tasks Goal Time Frame: 4-6 Weeks Goal 4:: Patient to demonstrate 50 % improvement with decrease pain and improved function Goal Time Frame: 4-6 Weeks Goal 5:: Patient to improve back oswestry score by 5 points to improve function Goal Time Frame: 4-6 Weeks - Rehabilitation Potential Physical Therapy Diagnosis: Patient has symmetrical lumbar pain with from L5 pars and antereiorlothesis with pain during postion ,motion testing and unable to perform muscular testing affecting daily activity and function Rehabilitation Potential: Good - Anticipated Interventions Patient/Client Instruction: Educate patient on: Condition, Plan of Care For the Purpose of:: To decrease pain, To increase ROM, To improve muscle performance and motor function, To improve ability to perform ADL's, To increase tolerance to activity/condition/position, To improve ability of physical actions for home/community/work/leisure, To improve health of tissue, To decrease soft tissue restriction, To increase flexibility/ROM, To prevent re-injury Therapeutic Exercise to Include: Strength training, Body mechanics, Postural training, Flexibilty training, Dynamic Lumbar Stabilization For the Purpose of:: To decrease pain, To increase ROM, To improve muscle performance and motor function, To improve ability to perform ADL's, To increase tolerance to activity/condition/position, To improve ability of physical actions for home/community/work/leisure, To improve health of tissue, To decrease soft tissue restriction, To increase flexibility/ROM, To reduce risk of recurrence TENS: Yes IF ES: Yes Cryotherapy (ice pack, ice massage): Yes Thermo therapy (hot pack): Yes Ultrasound (thermal/non thermal): Yes For the Purpose of:: To decrease pain, To increase ROM, To improve muscle performance and motor function, To improve ability to perform ADL's, To increase tolerance to activity/condition/position, To improve ability of physical actions for home/community/work/leisure, To improve health of tissue, To decrease soft tissue restriction, To increase flexibility/ROM Thank you for the opportunity to evaluate your patient. For Medicare and Medicare HMO plans, please review the plan of care and approve it. It will need to be FAXED BACK to us at [phone] for Medicare purposes. For Medicare only, by signing this I certify the plan of care. Please let me know if there are questions or concerns regarding this plan of care. Physician Signature: Date:
--- NOTE | 2022-04-07 13:24 | HP.PTDCSUM_ITS ---
It has been my pleasure to treat PB URIOSTEGUI referred by Dr. Jarod Wilson MD, with the diagnosis of BACK PAIN for a total of 9 visit(s). Discharge Date: Please see the following information for a summary of their discharge status. Subjective: Seems not much Bilateral Back Pain Intensity (Out of 10): 2 Objective/Function: POSTURE: WFL. GAIT: RECIPROCAL PATTERN. MMT: QUADS/HAMS/HIP 4/5,ANKLE 5/5. 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 Thank you for the referral of this patient. Sincerely, Mitul Cole, PT, Cert MDT, OCS Balance/Gait/Functional tests - Balance/Special Test Scores Oswestry Low Back Score: 24
== END 2021-11-11 19:00 | disposition home or self-care (01) ==
LOC: PT 16:30
PROVIDERS: PCP Family Medicine; Referring Provider Family Medicine; Visit Provider Family Medicine
DX: M54.9 Dorsalgia, unspecified (principal)
CPT/HCPCS: 97110; 97161

== ENCOUNTER → 2022-09-27 | Outpatient (CLI) | payer OTHER, SELFPAY ==
[2022-09-27 12:08] LABS: Absolute Lymphocyte Count 1.03 X10^3/uL (0.83-4.51); Absolute Neutrophil Count 4.3 X10^3/uL (2.0-7.7); Basophil# 0.05 X10^3/uL; Basophil% 0.8 % (0-1); Eosinophil# 0.18 X10^3/uL; Hematocrit 39.2 % (37-47); Lymphocyte # 1.03 X10^3/ul (0.83-4.51); Lymphocyte % 17.1 % (19-41); Mean Corp Hgb Conc 33.2 g/dL (32-36); Mean Corpuscular Hgb 28.7 pg (27.0-32.0); Mean Corpuscular Volume 86.5 fL (81-99); Mean Platelet Vol. 10.7 fl (6.2-12.0); Monocyte# 0.41 X10^3/uL; Monocyte% 6.8 % (0-10); NRBC Flagged by Analyzer 0 % (0-5); Neutrophil # 4.32 X10^3/uL (2.7-7.7); Platelet Count 318 K/mm3 (150-450); RBC Distribution Width CV 12.8 % (11.6-14.6); RBC Distribution Width SD 39.9 fl (35.1-43.9); Red Blood Count 4.53 M/mm3 (4.2-5.4)
[2022-09-27 12:24] LABS: Vitamin B12 455 pg/mL (211-911)
[2022-09-27 12:34] LABS: ALB/GLOB Ratio 0.8 RATIO (0.9-2.4); AST(SGOT) 13 U/L (15-37); Alanine Aminotransfer ALT/SGPT 24 U/L (13-56); Albumin, Serum 3.3 g/dL (3.2-5.0); Alkaline Phosphatase 71 U/L (45-117); Anion Gap 7 (5-15); BUN 17 mg/dL (7-18); BUN/Creat Ratio 17.6 RATIO (10-20); Calcium,Total 9.1 mg/dL (8.5-10.1); Chloride 104 mmol/L (98-107); Cholesterol 174 mg/dL (200); Creatinine, Serum 0.96 mg/dL (0.55-1.02); EST Glomerular Filtration Rate 65 mL/min (>60); Est Glom Filt Rate - Afr Amer 78 mL/min (>60); Ferritin 58 ng/mL (8-252); Globulin 4.4 g/dL (2.2-4.2); Glucose 86 mg/dL (74-106); High Density Lipoprotein 48 mg/dL; Potassium 3.6 mmol/L (3.5-5.1); Protein, Total 7.7 g/dL (6.4-8.2); Sodium Level 138 mmol/L (136-145); Triglycerides 76 mg/dL; Very Low Density Lipoprotein 15 mg/dL (5-40)
[2022-09-27 12:37] LABS: Hemoglobin A1c 5.1 % (3.8-5.6)
== END | disposition home or self-care (01) ==
LOC: MFPLAB 10:34
PROVIDERS: PCP Family Medicine; Visit Provider Family Medicine
DX: D64.9 Anemia, unspecified (principal); I10 Essential (primary) hypertension
CPT/HCPCS: 36415; 80053; 80061; 82607; 82728; 83036; 85025

== ENCOUNTER → 2022-11-17 | Outpatient (CLI) | payer OTHER, SELFPAY ==
--- NOTE | 2022-11-17 11:34 | CT_ITS ---
STUDY: CT ABDOMEN AND PELVIS WITH CONTRAST REASON FOR EXAM: Female, 52 years old. 3 day history of left lower quadrant pain. RADIATION DOSAGE (If Supplied By Facility): CTDIvol = ( 16.13 ) mGy, DLP = ( 1122.22 ) mGycm TECHNIQUE: Transaxial images were obtained from the dome of the diaphragm to the symphysis pubis without oral contrast. Oral and amp;amp; IV Gastrografin and amp;amp; 100mL Isovue-300 was administered. Sagittal and coronal images were reconstructed. Individualized dose optimization techniques were used for this CT. COMPARISON: None. FINDINGS: Minimal increased linear markings at the right lung base suggestive of possible atelectasis. The visualized portions of the heart are within normal limits. Stable 1.4 cm cyst in the anterior aspect of the right lobe of the liver. Stable 1 cm cyst in the inferior portion of the right lobe of the liver. Normal gallbladder and extrahepatic biliary system. Normal spleen. Normal pancreas. Normal bilateral adrenal glands. Small bilateral renal cysts. 4 mm nonobstructive calculus in the lower pole calyx of the left kidney. There is a small hiatal hernia. Normal small intestine. There are multiple colonic diverticula consistent with diverticulosis. There is evidence of inflammatory changes of the distal descending colon and proximal sigmoid colon in keeping with diverticulitis. The appendix is visualized and appears normal. Normal abdominal aorta. Normal inferior vena cava. Normal retroperitoneum. Normal urinary bladder. Heterogeneous appearance of an enlarged fibroid uterus. There is a small umbilical hernia containing fat. There are diffuse degenerative changes of the visualized lumbar spine. Stable grade 2 anterolisthesis of L5 on S1 with spondylolysis of the pars interarticularis of the L5 vertebrae. CT/Abdomen/Pelvis WITH Contrast IMPRESSION: Findings suggestive of noncomplicated acute sigmoid diverticulitis and inflammatory changes of the descending colon. Electronically Signed: Lauri Savage MD at 14:09 EDT ,
[2022-11-17 12:44] LABS: Hematocrit 39.6 % (37-47); Hemoglobin 13.1 g/dL (12.0-15.0); Mean Corp Hgb Conc 33.1 g/dL (32-36); Mean Corpuscular Hgb 28.7 pg (27.0-32.0); Mean Corpuscular Volume 86.8 fL (81-99); Mean Platelet Vol. 10.6 fl (6.2-12.0); Platelet Count 290 K/mm3 (150-450); RBC Distribution Width SD 41.2 fl (35.1-43.9); Red Blood Count 4.56 M/mm3 (4.2-5.4); White Blood Count 15.5 K/mm3 (4.4-11.0)
[2022-11-17 13:33] LABS: ALB/GLOB Ratio 0.7 RATIO (0.9-2.4); AST(SGOT) 12 U/L (15-37); Alanine Aminotransfer ALT/SGPT 31 U/L (13-56); Albumin, Serum 3.2 g/dL (3.2-5.0); Alkaline Phosphatase 72 U/L (45-117); Anion Gap 3 (5-15); BUN 12 mg/dL (7-18); BUN/Creat Ratio 11.4 RATIO (10-20); Calcium,Total 9.7 mg/dL (8.5-10.1); Chloride 100 mmol/L (98-107); Creatinine, Serum 1.05 mg/dL (0.55-1.02); EST Glomerular Filtration Rate 59 mL/min (>60); Est Glom Filt Rate - Afr Amer 71 mL/min (>60); Globulin 4.9 g/dL (2.2-4.2); Glucose 109 mg/dL (74-106); Potassium 3.9 mmol/L (3.5-5.1); Protein, Total 8.1 g/dL (6.4-8.2); Sodium Level 132 mmol/L (136-145)
== END | disposition home or self-care (01) ==
PROVIDERS: PCP Family Medicine; Referring Provider Family Medicine; Visit Provider Family Medicine
DX: R10.32 Left lower quadrant pain (principal)
CPT/HCPCS: 36415; 74177; 80053; 85027; Q9967

== ENCOUNTER → 2023-03-28 | Outpatient (CLI) | payer OTHER, SELFPAY ==
[2023-03-28 12:42] LABS: Anion Gap 5 (5-15); BUN 15 mg/dL (7-18); BUN/Creat Ratio 18.1 RATIO (10-20); Calcium,Total 9.3 mg/dL (8.5-10.1); Chloride 106 mmol/L (98-107); Creatinine, Serum 0.83 mg/dL (0.55-1.02); EST Glomerular Filtration Rate 77 mL/min (>60); Est Glom Filt Rate - Afr Amer 93 mL/min (>60); Glucose 87 mg/dL (74-106); Potassium 4.4 mmol/L (3.5-5.1); Sodium Level 138 mmol/L (136-145)
[2023-03-28 12:57] LABS: Microalbumin,Random Urine 8.8 mg/L (NO RANGE EST.); Microalbumin:Creatinine Ratio 9.4 mg/g CRE (<30 mg/g CRE)
== END | disposition home or self-care (01) ==
LOC: MFPLAB 09:57
PROVIDERS: PCP Family Medicine; Visit Provider Family Medicine
DX: I10 Essential (primary) hypertension (principal)
CPT/HCPCS: 36415; 80048; 82043; 82570

== ENCOUNTER → 2024-02-23 | Outpatient (CLI) | payer OTHER, SELFPAY ==
[2024-02-23 15:29] LABS: Absolute Lymphocyte Count 1.44 X10^3/uL (0.83-4.51); Basophil# 0.05 X10^3/uL; Basophil% 0.6 % (0-1); Eosinophil# 0.24 X10^3/uL; Eosinophils% 2.9 % (0-5); Hematocrit 40.7 % (37-47); Hemoglobin 13.4 g/dL (12.0-15.0); Lymphocyte # 1.44 X10^3/ul (0.83-4.51); Lymphocyte % 17.2 % (19-41); Mean Corp Hgb Conc 32.9 g/dL (32-36); Mean Corpuscular Hgb 28.8 pg (27.0-32.0); Mean Corpuscular Volume 87.5 fL (81-99); Mean Platelet Vol. 11.1 fl (6.2-12.0); Monocyte# 0.57 X10^3/uL; Monocyte% 6.8 % (0-10); NRBC Flagged by Analyzer 0 % (0-5); Neutrophil # 6.03 X10^3/uL (2.7-7.7); Neutrophil % 72.1 % (47-70); Platelet Count 284 K/mm3 (150-450); RBC Distribution Width CV 12.4 % (11.6-14.6); Red Blood Count 4.65 M/mm3 (4.2-5.4); White Blood Count 8.4 K/mm3 (4.4-11.0)
[2024-02-23 15:56] LABS: ALB/GLOB Ratio 0.9 RATIO (0.9-2.4); AST(SGOT) 14 U/L (15-37); Alanine Aminotransfer ALT/SGPT 24 U/L (13-56); Albumin, Serum 3.5 g/dL (3.2-5.0); Alkaline Phosphatase 66 U/L (45-117); Anion Gap 6 (5-15); BUN 22 mg/dL (7-18); BUN/Creat Ratio 21.8 RATIO (10-20); Calcium,Total 9.3 mg/dL (8.5-10.1); Chloride 104 mmol/L (98-107); Cholesterol 180 mg/dL (200); Creatinine, Serum 1.01 mg/dL (0.55-1.02); EST Glomerular Filtration Rate 61 mL/min (>60); Est Glom Filt Rate - Afr Amer 74 mL/min (>60); Globulin 3.8 g/dL (2.2-4.2); Glucose 82 mg/dL (74-106); High Density Lipoprotein 60 mg/dL; Protein, Total 7.3 g/dL (6.4-8.2); Sodium Level 137 mmol/L (136-145); Triglycerides 99 mg/dL; Very Low Density Lipoprotein 20 mg/dL (5-40)
[2024-02-23 15:59] LABS: Vitamin D,25 Hydroxy 90.8 ng/mL
== END | disposition home or self-care (01) ==
LOC: MTLAB 11:32
PROVIDERS: PCP Family Medicine; Referring Provider Family Medicine; Visit Provider Family Medicine
DX: I10 Essential (primary) hypertension (principal); E55.9 Vitamin D deficiency, unspecified
CPT/HCPCS: 36415; 80053; 80061; 82306; 85025

== ENCOUNTER 2024-06-19 19:48 | Emergency (ER) | payer OTHER, SELFPAY ==
[2024-06-19 19:49] VITALS: BP 164/97; PULSE 75; RESP 16; TEMP 37.2; O2SAT 99; BMI 32.5
[2024-06-19 21:00] VITALS: BP 143/92; PULSE 81; RESP 16; TEMP 36.8; O2SAT 93
--- NOTE | 2024-06-19 21:09 | CT_ITS ---
EXAM: CT ABDOMEN AND PELVIS WITHOUT INTRAVENOUS CONTRAST CLINICAL INDICATION: Pain TECHNIQUE: Helically acquired images were obtained of the abdomen and pelvis without intravenous contrast. This CT exam was performed using one or more of the following dose reduction techniques: automated exposure control, adjustment of the mA and/or kV according to patient size, and/or use of iterative reconstruction technique. COMPARISON: 11/17/2022 FINDINGS: LOWER THORAX: Small hiatal hernia. Lung bases are clear. No cardiomegaly. No significant pericardial effusion. ABDOMEN: LIVER: Low-attenuation foci within the liver consistent with cysts better demonstrated on prior examination and for which no follow-up is indicated. GALLBLADDER AND BILE DUCTS: No significant abnormality. No calcified gallstones. No gallbladder distention or wall edema. No intra- or extrahepatic biliary ductal dilation. PANCREAS: No significant abnormality. No focal cystic mass. SPLEEN: No significant abnormality. Normal size without focal cystic or solid mass. ADRENALS: No significant abnormality. No nodules. KIDNEYS AND URETERS: Asymmetric left perinephric stranding and moderate hydroureteronephrosis associated with a mid to distal left ureteral stone measuring approximately 7 mm. Normal renal size and position. STOMACH AND BOWEL: Colonic diverticulosis without evidence of acute diverticulitis. No stomach or bowel distention. PELVIS: APPENDIX: No evidence of acute appendicitis. BLADDER: No significant abnormality. REPRODUCTIVE: Normal as visualized. No mass. ABDOMEN and PELVIS: INTRAPERITONEAL SPACE: No significant abnormality. No ascites or other fluid collection. No free air. BONES/JOINTS: Mild degenerative changes in the spine. Bilateral L5 spondylolysis with grade 1 anterolisthesis of L5 upon S1. No suspicious lytic or blastic abnormality. SOFT TISSUES: Small fat-containing umbilical hernia. VASCULATURE: No significant abnormality. Abdominal aorta is non-dilated. LYMPH NODES: No significant abnormality. No enlarged lymph nodes. CT/Abdomen/Pelvis without Cont IMPRESSION: 1. Asymmetric left perinephric stranding and moderate hydroureteronephrosis associated with a mid to distal left ureteral stone measuring approximately 7 mm. 2. Small hiatal hernia. 3. Bilateral L5 spondylolysis with grade 1 anterolisthesis of L5 upon S1. Additional multilevel degenerative changes. 4. Colonic diverticulosis without evidence of acute diverticulitis. Electronically Signed: Low Aguilar DO at 21:50 EST ,
[2024-06-19] MEDS: Ketorolac 30 MG/ML Syringe IV (21:14)
[2024-06-19] MEDS: Ondansetron 4 MG/2 ML Vial IV (21:14)
--- NOTE | 2024-06-19 21:17 | EDS_ITS ---
HPI HPI - GI History of Present Illness Chief Complaint: Flank Pain Informant: patient Abdominal Pain/Flank Pain Onset: Days Context: Gradual Onset Timing: Intermittent Quality: Aching Location: Left Flank Current Severity: Moderate Maximum Severity: Moderate Nausea/Vomiting/Emesis GI Symptom: Positive for Nausea and Vomiting Onset: Today Severity: Mild Diarrhea/Melena/Hematochezia GI Symptom: Negative for Diarrhea, Melena or Hematochezia Associated Symptoms Associated Symptoms: Positive for Urgency; Negative for Dysuria, Frequency or Hematuria Narrative Narrative: 53-year-old female history of prior kidney stone hypertension. She has had int ermittent flank pain since Tuesday. Initially said it felt like pressure she thought she had a UTI. Did day the pain is more intense. Saw her primary care physician. Started her on tramadol for pain Bactrim for possible UTI and Flomax. Pain was worse tonight. She think she may have a kidney stone. She had a prior stone before that was surgically removed by cystoscopy. Prior similar symptoms: Yes Recent Illness/Hospitalization: No PFSH PFSH Medical History Hx of renal calculi History of high blood pressure Home Medications ?Medication ?Instructions ?Recorded ?Last Taken ?Type acetaminophen 500 mg tablet 500 mg PO Q4H PRN PRN Pain ##20 08/09/18 06/19/24 12:30 Rx ibuprofen 600 mg tablet 600 mg PO Q4H PRN PRN Pain #20 tabs 08/09/18 Unknown Rx bisoprolol 2.5 1 tab PO DAILY 06/19/24 Unknown History mg-hydrochlorothiazide 6.25 mg tablet hydrocodone 5 mg-acetaminophen 300 1 tab PO Q4H 4 days #24 tabs 06/19/24 Unknown Rx mg tablet lisinopril 5 mg tablet 5 mg PO DAILY 06/19/24 Unknown History ondansetron 4 mg disintegrating 4 mg PO Q6H PRN nausea and 06/19/24 Unknown Rx tablet vomiting #10 tabs sulfamethoxazole 800 1 tab PO BID 06/19/24 Unknown History mg-trimethoprim 160 mg tablet tamsulosin 0.4 mg capsule 0.4 mg PO DAILY 06/19/24 Unknown History tramadol 50 mg tablet 50 mg PO TID PRN PRN pain 06/19/24 06/19/24 13:30 History Allergy/AdvReac Type Severity Reaction Status Date / Time No Known Allergies Allergy Verified 06/19/24 19:49 Family History Mother Hypertension Father Sudden cardiac Brother Sudden cardiac Surgical History laparoscopic bilateral salpingectomy History of Social History Smoking Status: Current some day smoker tobacco type: cigars alcohol intake: never substance use type: does not use what type of physical activity do you participate in: weight training and other details: cardio frequency: 5-6 times per week seatbelt use: always do you feel safe at home: Yes additional social history: Spouse 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 Urinary urgency. Constitutional Constitutional ED: Denies chills or fever(s) ENT ENT ED: Denies ear pain Cardiovascular Cardiovascular: Denies chest pain Respiratory/Chest Respiratory/Chest: Denies cough or dyspnea Gastrointestinal Gastrointestinal: Reports abdominal pain Genitourinary Genitourinary ED: Reports urinary frequency; Denies dysuria or hematuria Musculoskeletal Musculoskeletal: Reports back pain; Denies arthralgias Integumentary Denies abscess or Abrasions Neurologic Neurologic: Denies headache(s) Psychiatric Psychiatric: Denies anxiety or depression Endocrine Endocrinology: Denies polydipsia, polyphagia or polyuria Hematologic/Lymphatic Hematologic/Lymphatic: Denies easy bleeding, easy bruising or lymphadenopathy Allergic/Immunologic Allergic/Immunologic ED: Denies mouth swelling, tongue swelling or urticaria EXAM Physical Exam Narrative Exam Narrative: Well-appearing 53-year-old female. Vital signs stable afebrile. H EENT exam unremarkable. Neck nontender. Lungs clear. Heart regular rate and rhythm rate about 80 no murmur. Chest wall and ribs nontender. Back nontender. No CVA tenderness. Abdomen soft, nontender, nondistended normal bowel sounds without peritoneal signs. No reproducible pain. Moving all 4 extremities. Nontender no edema. Normal strength. Neurologically she is awake alert no focal motor deficit. Const Vital Signs: 06/19/24 19:49 06/19/24 21:00 06/19/24 22:00 Temperature 99 F 98.2 F 98.6 F Temperature Source Oral Oral Oral Pulse Rate 75 81 79 Respiratory Rate 16 16 16 Blood Pressure 164/97 H 143/92 H 129/83 H Blood Pressure Mean 119 109 98 Pulse Ox 99 93 97 Oxygen Delivery Method Room Air Room Air Room Air Positive well nourished and well developed; Negative for cachectic, contractures or unkempt General Appearance ED: well developed and NAD; Negative for unkempt, cachectic, contractures or pallor Nutritional Appearance: Negative for cachectic HEENT Reports moist mucous membranes normocephalic and atraumatic; Negative for trauma or tenderness Eyes PERRL and EOMs intact bilaterally Neck no lymphadenopathy, supple and no JVD General: Negative for tenderness Carotids: Negative for other Lymph Lymphatic: Negative for other Resp normal respiratory effort and clear to auscultation bilaterally Effort and Inspection: Negative for respiratory distress Auscultation: Negative for rales, rhonchi, wheezes or diminished lung sounds Cardio regular rate, regular rhythm, S1 normal heart sound, S2 normal heart sound and no murmurs Rate: Negative for bradycardia or tachycardic Rhythm: Negative for abnormal rhythm GI non-tender, non-distended and no masses Inspection: Negative for abdominal distention Auscultation: normoactive bowel sounds Palpation: soft; Negative for tender, guarding or rebound tenderness present Back/Spine no CVA tenderness General Back: Negative for CVA tenderness Cervical Spine: Negative for cervical spine tenderness Thoracic Spine / Upper Back: Negative for thoracic spinal tenderness Lumbar Spine / Lower Back: Negative for lumbar spinal tenderness Coccyx: Negative for other Extremity full ROM General Extremety ED: Negative for edema or tenderness General Extremity: Negative for edema Neuro CN's II-XII intact bilaterally and moves all extremities Sensorium / Orientation: alert, oriented to person, oriented to place and oriented to time; Negative for orientation impaired, confused or lethargic Motor Exam: strength 5/5 throughout Psych mental status grossly normal and thought process normal Appearance: Negative for unkempt Attitude: No agitated Mood & Affect: Negative for depressed, anxious or tearful Skin no wounds General Skin Exam: Negative for jaundice or pallor Lesions: no lesions Rashes: no rashes Trauma: Negative for abrasion Nails: Negative for discolored MDM MDM MDM Narrative Medical decision making narrative: 53-year-old female with left flank pain suspect kidney stone. Rule out UTI. Greening labs CAT scan. UA. Morphine for pain Zofran for nausea and Toradol. Repeat exam patient is doing well at 10:45 PM. We discussed all of her test results. She has passed a 6 and a 7 mm stone before. The one she had to have taken out by cystoscope was 9 mm. She is currently pain-free feels well. She is comfortable being discharged home or follow-up with her urologist Dr. Parmjit Llanes tomorrow. She will be given a prescription for Vicodin for pain and Zofran for nausea. History & Record Review Discussion w/independent historian: Patient and Family Additional record(s) reviewed:: Prior inpatient record, Prior outpatient record and Prior ED visit Lab Data Attestation: I reviewed the patient's lab results. Lab results narrative: CBC white count of 15.7. H&H 12.6 and 36. Platelets 201. Electrolytes show sodium 132. Gap 9. BUN and creatinine are 19 and 1.2. Glucose 130. UA greater than 100 red cells. No white cells 1+ bacteria. No UTI Labs: Laboratory Results - last 24 hr 06/19/24 06/19/24 21:00 21:08 WBC 15.7 H RBC 4.29 Hgb 12.6 Hct 36.4 L MCV 84.8 MCH 29.4 MCHC 34.6 RDW Std Deviation 37.4 RDW Coeff of Sparkle 12.2 Plt Count 201 MPV 11.5 Immature Gran % (Auto) 0.600 Neut % (Auto) 92.7 H Lymph % (Auto) 4.0 L [place] % (Auto) 2.4 Eos % (Auto) 0.1 Baso % (Auto) 0.2 Absolute Neuts (auto) 14.6 H Absolute Lymphs (auto) 0.63 L Nucleated RBC % 0 Differential Comment Platelet Estimate ADEQUATE Hypochromasia 1+ Anisocytosis 1+ Sodium 132 L Potassium 3.8 Chloride 99 Carbon Dioxide 24.0 Anion Gap 9 BUN 19 H Creatinine 1.20 H Estim Creat Clear Calc 60.40 Est GFR (MDRD) Af Amer 61 Est GFR (MDRD) Non-Af 50 L BUN/Creatinine Ratio 15.8 Glucose 130 H Calcium 9.4 Urine Color Yellow Urine Clarity Cloudy Urine pH 6.5 Ur Specific [place] 1.015 Urine Protein 30 H Urine Glucose (UA) Normal Urine Ketones Negative Urine Occult Blood 250 H Urine Nitrite Negative Urine Bilirubin Negative Urine Urobilinogen Normal Ur Leukocyte Esterase 25 H Urine RBC > 100 SEEN Urine WBC 0-5 SEEN Ur Squamous Epith Cells 5-10 SEEN Urine Bacteria 1+ Urine Mucus 0 SEEN Radiography Diagnostic Testing: Clinical Impression(s) from Imaging Studies Abdomen/Pelvis CT 06/19/24 21:09 IMPRESSION: 1. Asymmetric left perinephric stranding and moderate hydroureteronephrosis associated with a mid to distal left ureteral stone measuring approximately 7 mm. 2. Small hiatal hernia. 3. Bilateral L5 spondylolysis with grade 1 anterolisthesis of L5 upon S1. Additional multilevel degenerative changes. 4. Colonic diverticulosis without evidence of acute diverticulitis. Electronically Signed: Low Aguilar DO at 21:50 EST , Discharge Plan Triage Chief Complaint: Flank Pain ED Provider: Ryan Mclean Dx/Rx/DC Orders Clinical Impression: Left flank pain, Ureteral calculus, left Instructions: ED Kidney Stone with Pain Prescriptions: New hydrocodone-acetaminophen 5-300 mg tablet 1 tab PO Q4H 4 Days Qty: 24 0RF ondansetron 4 mg tablet,disintegrating 4 mg PO Q6H PRN (Reason: nausea and vomiting) Qty: 10 0RF No Action acetaminophen 500 MG tablet 500 mg PO Q4H PRN PRN (Reason: Pain) Qty: 20 0RF ibuprofen 600 MG tablet 600 mg PO Q4H PRN PRN (Reason: Pain) Qty: 20 0RF sulfamethoxazole-trimethoprim 800-160 mg tablet 1 tab PO BID tramadol 50 mg tablet 50 mg PO TID PRN PRN (Reason: pain) tamsulosin 0.4 mg capsule 0.4 mg PO DAILY lisinopril 5 mg tablet 5 mg PO DAILY bisoprolol-hydrochlorothiazide 2.5-6.25 mg tablet 1 tab PO DAILY Primary Care Provider: Yenifer Cervantes Referrals: Prateek Llanes MD [Med Staff - Active Staff] - As soon as possible Jarod Wilson MD [Med Staff - Active Staff] - Activity Restrictions/Additional Instructions: Vicodin and Motrin for pain. You can stop the antibiotic. Zofran as needed for nausea. Call Dr. Parmjit Llanes's office tomorrow to follow-up with him. Return if intractable pain, fever or intractable vomiting. Print Language: Citizen Of [place] Disposition Disposition: Home, Self Care
[2024-06-19 21:24] LABS: Mucous, Urine 0 SEEN /hpf (<or=2+)
[2024-06-19] MEDS: morphine 8 MG/ML Syringe 6 MG IV (21:27)
[2024-06-19 21:43] LABS: Absolute Lymphocyte Count 0.63 X10^3/uL (0.83-4.51); Absolute Neutrophil Count 14.6 X10^3/uL (2.0-7.7); Basophil# 0.03 X10^3/uL; Basophil% 0.2 % (0-1); Eosinophil# 0.01 X10^3/uL; Eosinophils% 0.1 % (0-5); Hematocrit 36.4 % (37-47); Hemoglobin 12.6 g/dL (12.0-15.0); Lymphocyte # 0.63 X10^3/ul (0.83-4.51); Mean Corp Hgb Conc 34.6 g/dL (32-36); Mean Corpuscular Hgb 29.4 pg (27.0-32.0); Mean Corpuscular Volume 84.8 fL (81-99); Mean Platelet Vol. 11.5 fl (6.2-12.0); Monocyte# 0.38 X10^3/uL; Monocyte% 2.4 % (0-10); NRBC Flagged by Analyzer 0 % (0-5); Neutrophil # 14.59 X10^3/uL (2.7-7.7); Neutrophil % 92.7 % (47-70); POSITIVE COUNT YES; Platelet Count 201 K/mm3 (150-450); RBC Distribution Width CV 12.2 % (11.6-14.6); RBC Distribution Width SD 37.4 fl (35.1-43.9); Red Blood Count 4.29 M/mm3 (4.2-5.4); White Blood Count 15.7 K/mm3 (4.4-11.0)
[2024-06-19 21:54] LABS: Color, Urine Yellow (Yellow); Glucose, Dipstick Normal (Normal); Ketone-Dipstick Negative (Negative); Leukocyte Esterase-Dipstick 25 /ul (Negative); Nitrite-Dipstick Negative (Negative); Occult Blood-Urine 250 /ul (Negative); Protein-Dipstick 30 mg/dl (Negative); Specific Gravity, Urine 1.015 (1.002-1.030); Urine Bilirubin Dipstick Negative (Negative); Urine Clarity Cloudy (Clear); Urine Urobilinogen Normal (Normal); Urine pH 6.5 (5.0 - 8.0)
[2024-06-19 21:56] LABS: Differential Indicated SCAN CRITERIA MET
[2024-06-19 21:57] LABS: Anion Gap 9 (5-15); BUN 19 mg/dL (7-18); BUN/Creat Ratio 15.8 RATIO (10-20); Calcium,Total 9.4 mg/dL (8.5-10.1); Chloride 99 mmol/L (98-107); EST Glomerular Filtration Rate 50 mL/min (>60); Est Glom Filt Rate - Afr Amer 61 mL/min (>60); Glucose 130 mg/dL (74-106); Potassium 3.8 mmol/L (3.5-5.1); Sodium Level 132 mmol/L (136-145)
[2024-06-19 22:00] VITALS: BP 129/83; PULSE 79; RESP 16; TEMP 37; O2SAT 97
[2024-06-19 22:11] LABS: Red Blood Cells-Urine > 100 SEEN /hpf (0-5); Squamous Epithelial Cells - UA 5-10 SEEN /hpf (5-10)
[2024-06-19 22:12] LABS: Bacteria 1+ /hpf (None Seen); White Blood Cells 0-5 SEEN /hpf (0-5)
[2024-06-19 22:23] LABS: Anisocytosis 1+; Hypochromasia 1+; Platelet Estimate ADEQUATE (ADEQ)
[2024-06-19 23:00] VITALS: BP 130/81; PULSE 62; RESP 16; TEMP 37.1; O2SAT 93
[2024-06-19 23:13] VITALS: BP 130/81; PULSE 62; RESP 16; TEMP 37.1; O2SAT 93
== END 2024-06-19 23:16 | disposition home or self-care (01) ==
PROVIDERS: Emergency Provider Emergency Medicine; PCP Family Medicine; Visit Provider Emergency Medicine
DX: N20.1 Calculus of ureter (principal); I10 Essential (primary) hypertension; F17.290 Nicotine dependence, other tobacco product, uncomplicated; Z79.899 Other long term (current) drug therapy; Z79.891 Long term (current) use of opiate analgesic
CPT/HCPCS: 74176; 80048; 81001; 85025; 96374; 96375; 99282; A4216; J2405

== ENCOUNTER 2024-07-06 11:15 | Day surgery (SDC) | payer OTHER, SELFPAY ==
[2024-07-06] VITALS (9 sets, daily range): BP systolic 136–149; BP diastolic 81–101; PULSE 52–77; RESP 16; TEMP 36.2–36.7; O2SAT 97–100; BMI 32.3
--- NOTE | 2024-07-06 12:03 | PCM.PRE.AN2 ---
ASA Classification* ASA Classification ASA Classification: 2 Assessment & Plan Anesthesia* Anesthesia Assessment Anesthesia Assessment: Discussed sedation and/or anesthesia options, risks, benefits, and alternatives with patient/parents/legal guardian/POA. Questions invited. The patient/parents/legal guardian/POA seems to understand and agrees to proceed with anesthesia plan. Reviewed the physical assessment, medical history, allergy history and patient home medications list prior to surgery/procedure/anesthetic and documented any changes. Performed airway and anesthesia risk assessments. Anesthesia Type Anesthesia Type: General Anesthesia Focused Assessment* Temperature: 98.1 F Pulse Rate: 60 Blood Pressure: 142/101 Respiratory Rate: 16 Pulse Ox: 100 Airway Assessment Mouth opens: >3 cm Mallampati Score: II Focused Labs Anesthesia Preop lab: CBC WBC 15.7 K/mm3 (4.4-11.0) H 06/19/24 21:00 RBC 4.29 M/mm3 (4.2-5.4) 06/19/24 21:00 Hgb 12.6 g/dL (12.0-15.0) 06/19/24 21:00 Hct 36.4 % (37-47) L 06/19/24 21:00 Plt Count 201 K/mm3 (150-450) 06/19/24 21:00 CHEMISTRY Potassium 3.8 mmol/L (3.5-5.1) 06/19/24 21:00 Sodium 132 mmol/L (136-145) L 06/19/24 21:00 BUN 19 mg/dL (7-18) H 06/19/24 21:00 Creatinine 1.20 mg/dL (0.55-1.02) H 06/19/24 21:00 Glucose 130 mg/dL (74-106) H 06/19/24 21:00 TSH 1.64 uIU/mL (0.358-3.74) 09/23/21 11:06 COAG Urine Test Negative Negative 07/22/18 07:11 Pre-Assessment Diagnosis/Proposed Procedure Planned Operative Procedure(s): (L) Cysto,Ureteroscopy,Laser,Stent Anesthesia History 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 When Was Last Pacemaker Check QUESTION #4 FULL TEXT: You/Your Family Experience fever (hyperthermia) with Anesthesia Last Oral Intake Last Oral intake: Last Oral Intake NPO since 00:00 07/06/24 11:48 Meds taken in AM with sips of Yes 07/06/24 11:48 water? Meds patient instructed to bisoprolol/hctz 07/06/24 11:48 take am of surgery PONV PONV - communications professional: PONV - communications professional Female Yes 06/25/24 14:03 HX of Motion Sickness Yes 06/25/24 14:03 HX of N/V After Surgery No 06/25/24 14:03 Non-Smoker Yes 06/25/24 14:03 Duration of Surgery greater No 06/25/24 14:03 than 60 minutes Number of Risk Factors 3 06/25/24 14:03 PONV Score Moderate Risk 06/25/24 14:03 Height & Weight Height & Weight: Anesthesia: Height & Weight Height 5 ft 5 in 07/06/24 11:48 Weight: 88.2 kg 07/06/24 11:48 Body Mass Index (BMI) 32.3 07/06/24 11:48 Respiratory Assessment Respiratory Assessment - communications professional: Respiratory Tract Infection Hx - communications professional Hx Respiratory Tract Infection No 06/25/24 14:03 STOP Sleep Apnea STOP Sleep Apnea - communications professional: STOP Sleep Apnea - communications professional Hx Hypertension Yes: CONTROLLED WITH MED 06/25/24 14:03 Hx Sleep Apnea No 06/25/24 14:03 CPAP BIPAP Do you snore loudly (louder No 06/25/24 14:03 than talking or can be heard Do you often feel tired/ No 06/25/24 14:03 fatigued/ sleepy during daytime? Has anyone observed you stop No 06/25/24 14:03 breathing during sleep? STOP Results Negative 06/25/24 14:03 QUESTION #5 FULL TEXT : Do you snore loudly (louder than talking or can be heard through closed doors)? 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 Specify any problems Hx of Preganancy in last 3 N/A 06/25/24 14:03 Months Nurse Filling Out Transfusion [facility]BU[facility] 06/25/24 14:03 & Questions: Date: 06/25/24 06/25/24 14:03 Time: 14:04 06/25/24 14:03 Patient unable to answer at this time (ie. confused, unrespo /Reproduction History /Reproductive History - communications professional: /Reproductive Hx- communications professional Hx Now No 06/25/24 14:03 Gestational Age (in weeks): EDC: Hx Hx Para Hx Section SAB No 06/25/24 14:03 Active Medications Active Medications: Current Medications Generic Name Dose Route Start Last Admin Trade Name Freq PRN Reason Stop Dose Admin Cefazolin Sodium 2 gm/ N/A 20 mls @ 400 mls/hr 07/06/24 13:25 IV 07/06/24 13:27 PREOP ONE Lactated Ringer's 1,000 mls @ 15 mls/hr 07/06/24 11:30 IV 07/12/24 00:49 .Q48H [facility] Protocol PFSH Medical History Hypertension Heartburn Gastric reflux Former smoker Hx of renal calculi History of high blood pressure Home Medications ?Medication ?Instructions ?Recorded ?Last Taken ?Type acetaminophen 500 mg tablet 500 mg PO Q4H PRN PRN Pain ##20 08/09/18 06/19/24 12:30 Rx ibuprofen 600 mg tablet 600 mg PO Q4H PRN PRN Pain #20 tabs 08/09/18 Unknown Rx bisoprolol 2.5 1 tab PO DAILY 06/19/24 07/06/24 History mg-hydrochlorothiazide 6.25 mg tablet hydrocodone 5 mg-acetaminophen 300 1 tab PO Q4H 4 days #24 tabs 06/19/24 Unknown Rx mg tablet lisinopril 5 mg tablet 5 mg PO DAILY 06/19/24 07/05/24 History ondansetron 4 mg disintegrating 4 mg PO Q6H PRN nausea and 06/19/24 07/05/24 Rx tablet vomiting #10 tabs tamsulosin 0.4 mg capsule 0.4 mg PO DAILY 06/19/24 07/02/24 History Allergy/AdvReac Type Severity Reaction Status Date / Time No Known Allergies Allergy Verified 07/06/24 12:03 Family History Mother Hypertension Father Sudden cardiac Brother Sudden cardiac Surgical History History of cystoscopy History of endometrial ablation laparoscopic bilateral salpingectomy History of Social History Smoking Status: Former smoker alcohol intake: never substance use type: does not use what type of physical activity do you participate in: weight training and other details: cardio frequency: 5-6 times per week seatbelt use: always do you feel safe at home: Yes additional social history: 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
--- NOTE | 2024-07-06 12:26 | PCM.HP.STD ---
HPI - General General Date of Service: 07/06/24 Chief Complaint: Left ureteral stone HPI Narrative PB URIOSTEGUI, is a 53 F who presents for left ureteroscopy laser lithotripsy of stone and stent placement [facility] Medical History Hypertension Heartburn Gastric reflux Former smoker Hx of renal calculi History of high blood pressure Home Medications ?Medication ?Instructions ?Recorded ?Last Taken ?Type acetaminophen 500 mg tablet 500 mg PO Q4H PRN PRN Pain ##20 08/09/18 06/19/24 12:30 Rx ibuprofen 600 mg tablet 600 mg PO Q4H PRN PRN Pain #20 tabs 08/09/18 Unknown Rx bisoprolol 2.5 1 tab PO DAILY 06/19/24 07/06/24 History mg-hydrochlorothiazide 6.25 mg tablet hydrocodone 5 mg-acetaminophen 300 1 tab PO Q4H 4 days #24 tabs 06/19/24 Unknown Rx mg tablet lisinopril 5 mg tablet 5 mg PO DAILY 06/19/24 07/05/24 History ondansetron 4 mg disintegrating 4 mg PO Q6H PRN nausea and 06/19/24 07/05/24 Rx tablet vomiting #10 tabs tamsulosin 0.4 mg capsule 0.4 mg PO DAILY 06/19/24 07/02/24 History Allergy/AdvReac Type Severity Reaction Status Date / Time No Known Allergies Allergy Verified 07/06/24 12:03 Family History Mother Hypertension Father Sudden cardiac Brother Sudden cardiac Surgical History History of cystoscopy History of endometrial ablation laparoscopic bilateral salpingectomy History of Social History Smoking Status: Former smoker alcohol intake: never substance use type: does not use what type of physical activity do you participate in: weight training and other details: cardio frequency: 5-6 times per week seatbelt use: always do you feel safe at home: Yes additional social history: 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
--- NOTE | 2024-07-06 12:37 | PCM.DC ---
Discharge Instructions Diet Discharge Diet: No restrictions, Light diet - advance as tolerated and Soft diet DC O2, CPAP, BIPAP needs Additional Home O2 Discharge instructions: No Dressing / Incision Discharge Activity: Return to Normal Activity Dressing / Incision Call your doctor if you observe: Fever of 101 or Higher and Uncontrolled pain Follow Up Care Please Follow Up With: Prateek Llanes MD When: call for appt. Test Results: Test results from this visit will be discussed in further detail at your follow-up appointment, if applicable. Discharge Plan Admission Primary Reason for Your Visit: laser stone and stent Attending Provider: Prateek Llanes Primary Care Provider: Yenifer Cervantes Instructions Print Language: Venezuelan Discharge Orders/Prescriptions Prescriptions: New ciprofloxacin HCl [Cipro] 500 mg tablet 500 mg PO BID Qty: 6 0RF phenazopyridine [Pyridium] 100 mg tablet 100 mg PO TID Qty: 14 0RF tamsulosin [Flomax] 0.4 mg capsule 0.4 mg PO DAILY Qty: 10 0RF oxycodone 5 mg tablet 5 mg PO Q6H PRN (Reason: pain) 3 Days Qty: 14 0RF No Action acetaminophen 500 MG tablet 500 mg PO Q4H PRN PRN (Reason: Pain) Qty: 20 0RF ibuprofen 600 MG tablet 600 mg PO Q4H PRN PRN (Reason: Pain) Qty: 20 0RF tamsulosin 0.4 mg capsule 0.4 mg PO DAILY lisinopril 5 mg tablet 5 mg PO DAILY bisoprolol-hydrochlorothiazide 2.5-6.25 mg tablet 1 tab PO DAILY hydrocodone-acetaminophen 5-300 mg tablet 1 tab PO Q4H 4 Days Qty: 24 0RF ondansetron 4 mg tablet,disintegrating 4 mg PO Q6H PRN (Reason: nausea and vomiting) Qty: 10 0RF Referrals / Follow Up: Yenifer Cervantes MD [Primary Care Provider] - Prateek Llanes MD [Med Staff - Active Staff] - Disposition Disposition (needs filled in before D/C Order can be placed): Home, Self Care
[2024-07-06] MEDS: Cefazolin 2 GM in Syringe IV (12:45)
--- NOTE | 2024-07-06 13:13 | PCM.OPRPT ---
Operative Report (Standard) Operative Information Date of Procedure: 07/06/24 Pre-Operative Diagnosis: Left ureteral calculi Post-Operative Diagnosis: The same Surgery/Procedure Performed: Cystoscopy, balloon dilation of left ureter, left ureteroscopy laser lithotripsy of stone, no stent clinical assistant professor: No Type of Anesthesia: General RN Documented Start/Stop Times: Operation Date: 07/06/24 13:25 Case Time Into Pre-Op 07/06/24 11:25 Out of Pre-Op 07/06/24 12:41 Anesthesia Start 07/06/24 12:45 Into Room 07/06/24 12:45 Procedure Start 07/06/24 12:54 Procedure Start Time: 12:54 Procedure Stop Time: 13:13 Select all DRAINS/GRAFTS/IMPLANTS that apply: None Estimated Blood Loss: None Specimen collected: No Description of surgery: Patient was taken back to the operating room after smooth induction of anesthesia she was placed in dorsolithotomy position. Went into the bladder with a 21 [place]ian rigid cystourethroscope cannulated the left ureteral orifice with a Glidewire balloon dilated the distal left ureter with a 12 [place] balloon dilator and then went up the ureter with a semirigid ureteroscope and encountered the stone in the distal left ureter I then used 150 ?m laser fiber it was a thulium laser and I lasered the stones little tiny pieces all the pieces passed into the bladder there was minimal trauma inflammation of the ureter I went out of the ureter with the ureteroscope drained the bladder and decided not to place a stent since got the stone out completely and was no blockage minimal inflammation. Patient's bladder was drained pensions anesthetic was reversed and we will see her in 6 weeks for checkup. Surgical Findings: Stone in left ureter lasered little tiny pieces all the pieces passed into the bladder Complications Complications: No Admit VTE Documentation VTE Present on Admission: No VTE Mechan Device Prophylaxis: SCD's VTE Pharm Prophylaxis ordered?: No
--- NOTE | 2024-07-06 13:31 | PCM.POST.ANE ---
Anesthesia: Postop Eval I Current Vital Signs Temperature: 97.5 F Pulse Rate: 77 Blood Pressure: 146/81 Respiratory Rate: 16 Pulse Ox: 99 Assessment Airway patent: Yes Spontaneous unlabored respirations: Yes Mental status: Awake nausea: No Vomiting: No Anesthesia Complication: No Fluid Hydration Crystalloid volume administer (ml): 1,000 Total IV fluid infused: 1,000 Progress Note Anesthesia document: Postop Eval 1 completed: Yes
--- NOTE | 2024-07-06 13:32 | PCM.POSTANE2 ---
Anesthesia Postop Eval I Sum Postop Eval Completion status Anesthesia document: Postop Eval 1 completed: Yes Anesthesia Postop Eval I Summary Anesthesia Postop Eval I Summary: Anesthesia Postop Eval I: Assessment Summary Airway patent Yes 07/06/24 13:32 Spontaneous unlabored Yes 07/06/24 13:32 respirations Mental status Awake 07/06/24 13:32 nausea No 07/06/24 13:32 Vomiting No 07/06/24 13:32 Anesthesia Postop Eval I: Fluid Summary Crystalloid volume administer 1,000 07/06/24 13:32 (ml) Colloids volume administered ( ml) Blood Product volume administered (ml) Total IV fluid infused 1,000 07/06/24 13:32 Anesthesia Postop Eval I: Summary Notes Anesthesia Complication No 07/06/24 13:32 Anesthesia Complication Comment: Post-operative progress note Anesthesia: Postop Eval II Evaluation Mental status: Awake Pain Level: 0 nausea: No Vomiting: No
[2024-07-06] MEDS: Ketorolac 15 MG/ML Vial IV (13:39)
== END 2024-07-06 14:43 | disposition home or self-care (01) ==
LOC: SDC 11:19 → AC 11:19
PROVIDERS: PCP Family Medicine; Referring Provider Urology; Visit Provider Urology
PROC: 0TJ98ZZ Inspection of Ureter, Via Natural or Artificial Opening Endoscopic (ICD-10-PCS; CPT 52352; principal; 2024-07-06 13:15)
DX: N20.1 Calculus of ureter (principal); Z87.891 Personal history of nicotine dependence; K21.9 Gastro-esophageal reflux disease without esophagitis; I10 Essential (primary) hypertension; Z79.899 Other long term (current) drug therapy
CPT/HCPCS: 52353; 00873; 76000; C1769; J2405

== ENCOUNTER → 2025-03-18 | Outpatient (CLI) | payer OTHER, SELFPAY ==
--- NOTE | 2025-03-18 15:08 | RAD_ITS ---
PROCEDURE: CHEST PA AND LATERAL 03/18/2025 REASON FOR EXAM: COUGH TECHNIQUE: CHEST PA AND LATERAL COMPARISON: None provided. RAD/Chest PA and Lateral IMPRESSION: Minimal thoracic spine degenerative changes are seen. Lungs appear clear throughout. No pleural effusion or pneumothorax is seen. The cardiomediastinal silhouette is remarkable for a somewhat tortuous aorta. No evidence of cardiomegaly. No evidence of acute cardiopulmonary disease. Reading Location: [place] [id number]
== END | disposition home or self-care (01) ==
LOC: MTRAD 15:08
PROVIDERS: PCP Family Medicine; Referring Provider Nurse Practitioner Family; Visit Provider Nurse Practitioner Family
DX: R05.9 Cough, unspecified (principal)
CPT/HCPCS: 71046